=== PATIENT | female | born 1945 | race Caucasian/White ===

== ENCOUNTER 2020-11-19 17:42 | Inpatient (IN) | payer MEDICARE, MEDICAID ==
[~2020-11-19] VITALS: Ht 162.6 cm; Wt 80.7 kg
[2020-11-19] MEDS ORDERED: DEXTROSE 50%-WATER 25 GM/50 ML SYRINGE IVP PRN (19:45)
[2020-11-19 20:08] VITALS: BP 160/82
[2020-11-19 20:30] VITALS: BP 161/76
[2020-11-19] MEDS ORDERED: APIXABAN 5 MG TABLET PO SCH (21:00)
[2020-11-19] MEDS: METOPROLOL TARTRATE 25 MG TABLET PO SCH (21:22)
[2020-11-19] MEDS: ACETAMINOPHEN 325 MG TABLET PO PRN (21:22)
[2020-11-19] MEDS: ATORVASTATIN CALCIUM 40 MG TABLET PO SCH (21:22)
[2020-11-19] MEDS: DOCUSATE SODIUM 250 MG CAPSULE PO SCH (21:22)
[2020-11-19] MEDS: ETHYL ALCOHOL 62% ANTISEPTIC NASAL INHALANT 0.6 ML AMPUL NASAL SCH (21:22)
[2020-11-19] MEDS: GABAPENTIN 300 MG CAPSULE PO SCH (21:22)
[2020-11-19] MEDS: SENNA 187 MG TABLET PO SCH (21:22)
[2020-11-19] MEDS: BRIMONIDINE TARTRATE 0.1% 5 ML OPHTHALMIC SOLUTION OU SCH (21:24)
[2020-11-19] MEDS: INSULIN LISPRO 100 UNITS/ML SQ PRN (21:24)
[2020-11-19 22:22] VITALS: BP 121/54
[2020-11-19 22:22] LABS: GLUCOMETER DEV NAME(LOC) 2WR.1C; GLUCOSE,POINT OF CARE 170 MG/DL (70-110)
[2020-11-19] MEDS: 0.9% SODIUM CHLORIDE 10 ML SYRINGE IVP SCH (23:55)
[2020-11-20] VITALS: BP 123/60
[2020-11-20 06:18] LABS: GLUCOMETER DEV NAME(LOC) 2WR.2B; GLUCOSE,POINT OF CARE 144 MG/DL (70-110)
[2020-11-20 06:25] LABS: BASOPHILS % (AUTO) 0.3 % (0.0-2.0); EOSINOPHILS % (AUTO) 0.4 % (1.0-6.0); HEMATOCRIT 36.8 % (36-46); LYMPHOCYTES # (AUTO) 0.9 K/uL (1.0-4.8); MEAN CORPUSCULAR HEMOGLOBIN 28.2 pg (26.0-34.0); MEAN CORPUSCULAR HGB CONC 32.6 G/dL (31.0-37.0); MEAN CORPUSCULAR VOLUME 87 fL (80-100); MONOCYTES # (AUTO) 1.2 K/uL (0.1-1.0); MONOCYTES % (AUTO) 10.5 % (2.0-9.0); NEUTROPHILS # (AUTO) 9.4 K/uL (1.8-7.7); NEUTROPHILS % (AUTO) 80.8 % (40.0-70.0); PLATELET COUNT (AUTO) 259 K/uL (150-450); RED BLOOD CELL COUNT(AUTO) 4.25 MIL/uL (4.00-5.20); RED CELL DISTRIBUTION WIDTH 15.8 % (11.5-14.5)
[2020-11-20 06:43] LABS: ALANINE AMINOTRANSFERASE 48 U/L (12-78); ALBUMIN 2.1 g/dL (3.4-5.0); ALKALINE PHOSPHATASE 126 U/L (46-116); ANION GAP 8 mmol/L (8-16); ASPARTATE AMINOTRANSFERASE 41 U/L (15-37); BILIRUBIN,TOTAL 0.5 mg/dL (0.1-1.0); CALCIUM, TOTAL 8.4 mg/dL (8.8-10.5); CARBON DIOXIDE 28 mmol/L (22-29); CHLORIDE 102 mmol/L (98-107); CREATININE 0.71 mg/dL (0.60-1.30); GLUCOSE,RANDOM 144 mg/dL (70-110); POTASSIUM 3.7 mmol/L (3.5-5.1); SODIUM SERUM 138 mmol/L (136-145); TOTAL PROTEIN, SERUM 6.7 g/dL (6.4-8.2); UREA NITROGEN, BLOOD 13 mg/dL (7-18)
[2020-11-20 06:44] LABS: GLOMERULAR FILTR. RATE CALC > 60 mL/min (>60)
[2020-11-20 08:16] VITALS: BP 145/84
[2020-11-20] MEDS: ETHYL ALCOHOL 62% ANTISEPTIC NASAL INHALANT 0.6 ML AMPUL NASAL SCH ×2 (08:19→21:50)
[2020-11-20] MEDS: DOCUSATE SODIUM 250 MG CAPSULE PO SCH ×2 (08:20→21:50)
[2020-11-20] MEDS: CHOLECALCIFEROL (VIT D3) 1,000 UNITS [25 MCG] TABLET PO SCH (08:20)
[2020-11-20] MEDS: PIOGLITAZONE HCL 15 MG TABLET PO SCH (08:20)
[2020-11-20] MEDS: METOPROLOL TARTRATE 25 MG TABLET PO SCH ×2 (08:20→21:50)
[2020-11-20] MEDS: AmLODIPine BESYLATE 5 MG TABLET PO SCH (08:20)
[2020-11-20] MEDS: LISINOPRIL 20 MG TABLET PO SCH (08:20)
[2020-11-20] MEDS: GABAPENTIN 300 MG CAPSULE PO SCH ×2 (08:20→21:50)
[2020-11-20] MEDS: 0.9% SODIUM CHLORIDE 10 ML SYRINGE IVP SCH ×3 (08:21→23:43)
[2020-11-20] MEDS: MetFORMIN HCL 500 MG TABLET PO SCH ×2 (08:25→17:32)
[2020-11-20] MEDS ORDERED: ASPIRIN 81 MG CHEWABLE TABLET PO SCH (09:00)
[2020-11-20] MEDS: INSULIN LISPRO 100 UNITS/ML SQ PRN ×3 (09:05→20:40)
[2020-11-20] MEDS: BRIMONIDINE TARTRATE 0.1% 5 ML OPHTHALMIC SOLUTION OU SCH ×2 (09:15→21:56)
[2020-11-20] MEDS: KETOCONAZOLE 2% 15 GM CREAM TP SCH (11:16)
[2020-11-20] MEDS: ACETAMINOPHEN 325 MG TABLET PO PRN (12:32)
[2020-11-20 16:00] LABS: GLUCOMETER DEV NAME(LOC) 2WR.2B; GLUCOSE,POINT OF CARE 126 MG/DL (70-110)
[2020-11-20 16:45] VITALS: BP 112/60
[2020-11-20] MEDS ORDERED: ERTAPENEM SODIUM 1 GM/VIAL IM SCH (17:00)
[2020-11-20] MEDS ORDERED: LIDOCAINE/PF 1% 5 ML VIAL IM SCH (17:00)
[2020-11-20] MEDS: ERTAPENEM SODIUM 1 GM in SODIUM CHLORIDE 0.9% 50 ML IV SCH (17:40)
[2020-11-20] MEDS ORDERED: SODIUM CHLORIDE 0.9% 250 ML IV ONE (17:44)
[2020-11-20 18:59] LABS: GLUCOMETER DEV NAME(LOC) 2WR.1C; GLUCOSE,POINT OF CARE 151 MG/DL (70-110)
[2020-11-20] MEDS: SENNA 187 MG TABLET PO SCH (21:50)
[2020-11-20] MEDS: ATORVASTATIN CALCIUM 40 MG TABLET PO SCH (21:50)
[2020-11-20 21:54] VITALS: BP 115/64
[2020-11-21 02:00] VITALS: BP 109/51
[2020-11-21 05:14] LABS: GLUCOMETER DEV NAME(LOC) 2WR.1C; GLUCOSE,POINT OF CARE 157 MG/DL (70-110)
[2020-11-21 05:53] LABS: GLUCOMETER DEV NAME(LOC) 2WR.1C; GLUCOSE,POINT OF CARE 131 MG/DL (70-110)
[2020-11-21 08:10] VITALS: BP 144/60
[2020-11-21] MEDS: DOCUSATE SODIUM 250 MG CAPSULE PO SCH ×2 (08:23→20:57)
[2020-11-21] MEDS: CHOLECALCIFEROL (VIT D3) 1,000 UNITS [25 MCG] TABLET PO SCH (08:23)
[2020-11-21] MEDS: MetFORMIN HCL 500 MG TABLET PO SCH ×2 (08:23→17:05)
[2020-11-21] MEDS: ETHYL ALCOHOL 62% ANTISEPTIC NASAL INHALANT 0.6 ML AMPUL NASAL SCH ×2 (08:23→20:56)
[2020-11-21] MEDS: 0.9% SODIUM CHLORIDE 10 ML SYRINGE IVP SCH ×2 (08:23→17:05)
[2020-11-21] MEDS: METOPROLOL TARTRATE 25 MG TABLET PO SCH ×2 (08:24→20:57)
[2020-11-21] MEDS: GABAPENTIN 300 MG CAPSULE PO SCH ×2 (08:24→20:57)
[2020-11-21] MEDS: LISINOPRIL 20 MG TABLET PO SCH (08:24)
[2020-11-21] MEDS: PIOGLITAZONE HCL 15 MG TABLET PO SCH (08:24)
[2020-11-21] MEDS: AmLODIPine BESYLATE 5 MG TABLET PO SCH (08:25)
[2020-11-21] MEDS: BRIMONIDINE TARTRATE 0.1% 5 ML OPHTHALMIC SOLUTION OU SCH ×2 (09:19→20:57)
[2020-11-21] MEDS: KETOCONAZOLE 2% 15 GM CREAM TP SCH (09:20)
[2020-11-21] MEDS: ACETAMINOPHEN 325 MG TABLET PO PRN (10:09)
[2020-11-21 12:16] LABS: GLUCOMETER DEV NAME(LOC) 2WR.2B; GLUCOSE,POINT OF CARE 153 MG/DL (70-110)
[2020-11-21] MEDS: INSULIN LISPRO 100 UNITS/ML SQ PRN ×2 (12:34→21:22)
[2020-11-21] MEDS: ERTAPENEM SODIUM 1 GM in SODIUM CHLORIDE 0.9% 50 ML IV SCH (17:05)
[2020-11-21 18:04] LABS: GLUCOMETER DEV NAME(LOC) 2WR.1C; GLUCOSE,POINT OF CARE 107 MG/DL (70-110)
[2020-11-21] MEDS: ATORVASTATIN CALCIUM 40 MG TABLET PO SCH (20:57)
[2020-11-21] MEDS: SENNA 187 MG TABLET PO SCH (20:57)
[2020-11-21 21:25] LABS: GLUCOMETER DEV NAME(LOC) 2WR.1C; GLUCOSE,POINT OF CARE 146 MG/DL (70-110)
[2020-11-21 21:55] VITALS: BP 131/66
[2020-11-22] MEDS: 0.9% SODIUM CHLORIDE 10 ML SYRINGE IVP SCH ×3 (00:34→16:26)
[2020-11-22 01:33] VITALS: BP 104/52
[2020-11-22 06:15] LABS: GLUCOMETER DEV NAME(LOC) 2WR.2B; GLUCOSE,POINT OF CARE 114 MG/DL (70-110)
[2020-11-22] MEDS: BRIMONIDINE TARTRATE 0.1% 5 ML OPHTHALMIC SOLUTION OU SCH ×2 (08:27→21:04)
[2020-11-22] MEDS: KETOCONAZOLE 2% 15 GM CREAM TP SCH (08:27)
[2020-11-22] MEDS: LISINOPRIL 20 MG TABLET PO SCH (08:29)
[2020-11-22] MEDS: MetFORMIN HCL 500 MG TABLET PO SCH ×2 (08:29→17:39)
[2020-11-22] MEDS: DOCUSATE SODIUM 250 MG CAPSULE PO SCH ×2 (08:29→20:19)
[2020-11-22] MEDS: ETHYL ALCOHOL 62% ANTISEPTIC NASAL INHALANT 0.6 ML AMPUL NASAL SCH ×2 (08:29→20:19)
[2020-11-22] MEDS: PIOGLITAZONE HCL 15 MG TABLET PO SCH (08:29)
[2020-11-22] MEDS: AmLODIPine BESYLATE 5 MG TABLET PO SCH (08:29)
[2020-11-22] MEDS: GABAPENTIN 300 MG CAPSULE PO SCH ×2 (08:30→20:19)
[2020-11-22] MEDS: METOPROLOL TARTRATE 25 MG TABLET PO SCH ×2 (08:30→20:19)
[2020-11-22] MEDS: CHOLECALCIFEROL (VIT D3) 1,000 UNITS [25 MCG] TABLET PO SCH (08:30)
[2020-11-22 08:58] VITALS: BP 142/72
[2020-11-22] MEDS: ACETAMINOPHEN 325 MG TABLET PO PRN (08:58)
[2020-11-22 12:30] LABS: GLUCOMETER DEV NAME(LOC) 2WR.2B; GLUCOSE,POINT OF CARE 141 MG/DL (70-110)
[2020-11-22] MEDS: INSULIN LISPRO 100 UNITS/ML SQ PRN (12:42)
[2020-11-22] MEDS: ERTAPENEM SODIUM 1 GM in SODIUM CHLORIDE 0.9% 50 ML IV SCH ×2 (16:26→16:53)
[2020-11-22] MEDS ORDERED: SODIUM CHLORIDE 0.9% 500 ML IV ONE (17:08)
[2020-11-22 18:01] VITALS: BP 102/61
[2020-11-22 19:27] LABS: GLUCOMETER DEV NAME(LOC) 2WR.2B; GLUCOSE,POINT OF CARE 114 MG/DL (70-110)
[2020-11-22] MEDS: ATORVASTATIN CALCIUM 40 MG TABLET PO SCH (20:19)
[2020-11-22] MEDS: SENNA 187 MG TABLET PO SCH (20:20)
[2020-11-23] VITALS: BP 112/50
[2020-11-23] MEDS: 0.9% SODIUM CHLORIDE 10 ML SYRINGE IVP SCH ×3 (00:01→17:17)
[2020-11-23 05:47] LABS: GLUCOMETER DEV NAME(LOC) 2WR.1C; GLUCOSE,POINT OF CARE 104 MG/DL (70-110)
[2020-11-23 06:00] LABS: GLUCOMETER DEV NAME(LOC) 2WR.1C; GLUCOSE,POINT OF CARE 98 MG/DL (70-110)
[2020-11-23] MEDS: MetFORMIN HCL 500 MG TABLET PO SCH ×2 (07:51→17:17)
[2020-11-23] MEDS: LISINOPRIL 20 MG TABLET PO SCH (08:38)
[2020-11-23] MEDS: AmLODIPine BESYLATE 5 MG TABLET PO SCH (08:38)
[2020-11-23] MEDS: GABAPENTIN 300 MG CAPSULE PO SCH ×2 (08:38→21:25)
[2020-11-23] MEDS: ETHYL ALCOHOL 62% ANTISEPTIC NASAL INHALANT 0.6 ML AMPUL NASAL SCH ×2 (08:38→21:14)
[2020-11-23] MEDS: DOCUSATE SODIUM 250 MG CAPSULE PO SCH ×2 (08:38→21:25)
[2020-11-23] MEDS: CHOLECALCIFEROL (VIT D3) 1,000 UNITS [25 MCG] TABLET PO SCH (08:38)
[2020-11-23] MEDS: PIOGLITAZONE HCL 15 MG TABLET PO SCH (08:38)
[2020-11-23 08:40] VITALS: BP 108/52
[2020-11-23] MEDS: ACETAMINOPHEN 325 MG TABLET PO PRN (10:01)
[2020-11-23] MEDS: METOPROLOL TARTRATE 25 MG TABLET PO SCH ×2 (10:01→21:26)
[2020-11-23] MEDS: BRIMONIDINE TARTRATE 0.1% 5 ML OPHTHALMIC SOLUTION OU SCH ×2 (10:07→21:26)
[2020-11-23] MEDS: KETOCONAZOLE 2% 15 GM CREAM TP SCH (10:08)
[2020-11-23 13:14] LABS: GLUCOMETER DEV NAME(LOC) 2WR.2B; GLUCOSE,POINT OF CARE 117 MG/DL (70-110)
[2020-11-23] MEDS: ERTAPENEM SODIUM 1 GM in SODIUM CHLORIDE 0.9% 50 ML IV SCH (17:16)
[2020-11-23 18:05] VITALS: BP 109/59
[2020-11-23 19:34] LABS: GLUCOMETER DEV NAME(LOC) 2WR.1C; GLUCOSE,POINT OF CARE 101 MG/DL (70-110)
[2020-11-23] MEDS: TAMSULOSIN HCL 0.4 MG CAPSULE PO SCH (21:25)
[2020-11-23] MEDS: SENNA 187 MG TABLET PO SCH (21:25)
[2020-11-23] MEDS: ATORVASTATIN CALCIUM 40 MG TABLET PO SCH (21:25)
[2020-11-23 21:52] LABS: GLUCOMETER DEV NAME(LOC) 2WR.1C; GLUCOSE,POINT OF CARE 111 MG/DL (70-110)
[2020-11-24] VITALS: BP 124/68
[2020-11-24] MEDS: 0.9% SODIUM CHLORIDE 10 ML SYRINGE IVP SCH ×3 (00:07→16:33)
[2020-11-24 06:47] LABS: GLUCOMETER DEV NAME(LOC) 2WR.1C; GLUCOSE,POINT OF CARE 125 MG/DL (70-110)
[2020-11-24 08:00] VITALS: BP 114/66
[2020-11-24] MEDS: DOCUSATE SODIUM 250 MG CAPSULE PO SCH ×2 (08:44→21:00)
[2020-11-24] MEDS: PIOGLITAZONE HCL 15 MG TABLET PO SCH (08:44)
[2020-11-24] MEDS: MetFORMIN HCL 500 MG TABLET PO SCH ×2 (08:44→17:18)
[2020-11-24] MEDS: GABAPENTIN 300 MG CAPSULE PO SCH ×2 (08:45→21:01)
[2020-11-24] MEDS: LISINOPRIL 20 MG TABLET PO SCH (08:45)
[2020-11-24] MEDS: METOPROLOL TARTRATE 25 MG TABLET PO SCH ×2 (08:45→21:00)
[2020-11-24] MEDS: CHOLECALCIFEROL (VIT D3) 1,000 UNITS [25 MCG] TABLET PO SCH (08:45)
[2020-11-24] MEDS: AmLODIPine BESYLATE 5 MG TABLET PO SCH (08:45)
[2020-11-24] MEDS: ETHYL ALCOHOL 62% ANTISEPTIC NASAL INHALANT 0.6 ML AMPUL NASAL SCH ×2 (09:01→21:00)
[2020-11-24] MEDS: BRIMONIDINE TARTRATE 0.1% 5 ML OPHTHALMIC SOLUTION OU SCH ×2 (09:03→21:01)
[2020-11-24] MEDS: KETOCONAZOLE 2% 15 GM CREAM TP SCH (09:04)
[2020-11-24 13:01] LABS: GLUCOMETER DEV NAME(LOC) 2WR.1C; GLUCOSE,POINT OF CARE 121 MG/DL (70-110)
[2020-11-24] MEDS ORDERED: MAGNESIUM HYDROXIDE SUSPENSION 30 ML UDCUP PO PRN (13:30)
[2020-11-24] MEDS ORDERED: POLYETHYLENE GLYCOL 3350 17 GM PACKET PO PRN (13:30)
[2020-11-24 16:20] VITALS: BP 116/61
[2020-11-24] MEDS: ERTAPENEM SODIUM 1 GM in SODIUM CHLORIDE 0.9% 50 ML IV SCH (16:31)
[2020-11-24] MEDS ORDERED: SODIUM CHLORIDE 0.9% 250 ML IV ONE (16:35)
[2020-11-24 18:15] LABS: GLUCOMETER DEV NAME(LOC) 2WR.1C; GLUCOSE,POINT OF CARE 115 MG/DL (70-110)
[2020-11-24] MEDS: SENNA 187 MG TABLET PO SCH (21:00)
[2020-11-24] MEDS: TAMSULOSIN HCL 0.4 MG CAPSULE PO SCH (21:00)
[2020-11-24] MEDS: ATORVASTATIN CALCIUM 40 MG TABLET PO SCH (21:01)
[2020-11-24 21:05] VITALS: BP 114/59
[2020-11-24 21:36] LABS: GLUCOMETER DEV NAME(LOC) 2WR.1C; GLUCOSE,POINT OF CARE 113 MG/DL (70-110)
[2020-11-25] VITALS: BP 114/56
[2020-11-25] MEDS: 0.9% SODIUM CHLORIDE 10 ML SYRINGE IVP SCH ×4 (00:20→23:30)
[2020-11-25 05:44] LABS: GLUCOMETER DEV NAME(LOC) 2WR.2B; GLUCOSE,POINT OF CARE 107 MG/DL (70-110)
[2020-11-25] MEDS: ETHYL ALCOHOL 62% ANTISEPTIC NASAL INHALANT 0.6 ML AMPUL NASAL SCH ×2 (08:22→21:01)
[2020-11-25] MEDS: DOCUSATE SODIUM 250 MG CAPSULE PO SCH ×2 (08:23→21:01)
[2020-11-25] MEDS: BRIMONIDINE TARTRATE 0.1% 5 ML OPHTHALMIC SOLUTION OU SCH ×2 (08:23→21:03)
[2020-11-25] MEDS: PIOGLITAZONE HCL 15 MG TABLET PO SCH (08:23)
[2020-11-25] MEDS: AmLODIPine BESYLATE 5 MG TABLET PO SCH (08:24)
[2020-11-25] MEDS: METOPROLOL TARTRATE 25 MG TABLET PO SCH ×2 (08:24→21:01)
[2020-11-25] MEDS: GABAPENTIN 300 MG CAPSULE PO SCH ×2 (08:24→21:01)
[2020-11-25] MEDS: CHOLECALCIFEROL (VIT D3) 1,000 UNITS [25 MCG] TABLET PO SCH (08:24)
[2020-11-25] MEDS: LISINOPRIL 20 MG TABLET PO SCH (08:24)
[2020-11-25] MEDS: KETOCONAZOLE 2% 15 GM CREAM TP SCH (08:25)
[2020-11-25] MEDS: MetFORMIN HCL 500 MG TABLET PO SCH ×2 (08:26→17:41)
[2020-11-25 10:00] VITALS: BP 131/67
[2020-11-25 12:03] LABS: GLUCOMETER DEV NAME(LOC) 2WR.1C; GLUCOSE,POINT OF CARE 158 MG/DL (70-110)
[2020-11-25] MEDS: INSULIN LISPRO 100 UNITS/ML SQ PRN (12:17)
[2020-11-25 16:02] VITALS: BP 109/54
[2020-11-25] MEDS ORDERED: SODIUM CHLORIDE 0.9% 0 ML IV ONE (16:47)
[2020-11-25] MEDS ORDERED: SODIUM CHLORIDE 0.9% 100 ML ONE (16:49)
[2020-11-25] MEDS: ERTAPENEM SODIUM 1 GM in SODIUM CHLORIDE 0.9% 50 ML IV SCH (16:52)
[2020-11-25 17:34] LABS: GLUCOMETER DEV NAME(LOC) 2WR.2B; GLUCOSE,POINT OF CARE 93 MG/DL (70-110)
[2020-11-25 21:00] VITALS: BP 123/62
[2020-11-25] MEDS: TAMSULOSIN HCL 0.4 MG CAPSULE PO SCH (21:01)
[2020-11-25] MEDS: ATORVASTATIN CALCIUM 40 MG TABLET PO SCH (21:01)
[2020-11-25] MEDS: SENNA 187 MG TABLET PO SCH (21:01)
[2020-11-25 21:35] LABS: GLUCOMETER DEV NAME(LOC) 2WR.2B; GLUCOSE,POINT OF CARE 104 MG/DL (70-110)
[2020-11-26 00:22] VITALS: BP 124/66
[2020-11-26 05:59] LABS: GLUCOMETER DEV NAME(LOC) 2WR.1C; GLUCOSE,POINT OF CARE 101 MG/DL (70-110)
[2020-11-26] MEDS: CHOLECALCIFEROL (VIT D3) 1,000 UNITS [25 MCG] TABLET PO SCH (08:14)
[2020-11-26] MEDS: GABAPENTIN 300 MG CAPSULE PO SCH ×2 (08:14→21:12)
[2020-11-26] MEDS: METOPROLOL TARTRATE 25 MG TABLET PO SCH ×2 (08:14→21:12)
[2020-11-26] MEDS: DOCUSATE SODIUM 250 MG CAPSULE PO SCH ×2 (08:14→21:12)
[2020-11-26] MEDS: MetFORMIN HCL 500 MG TABLET PO SCH ×2 (08:14→17:03)
[2020-11-26] MEDS: AmLODIPine BESYLATE 5 MG TABLET PO SCH (08:14)
[2020-11-26] MEDS: PIOGLITAZONE HCL 15 MG TABLET PO SCH (08:14)
[2020-11-26] MEDS: LISINOPRIL 20 MG TABLET PO SCH (08:14)
[2020-11-26] MEDS: KETOCONAZOLE 2% 15 GM CREAM TP SCH (08:15)
[2020-11-26] MEDS: 0.9% SODIUM CHLORIDE 10 ML SYRINGE IVP SCH ×2 (08:15→17:01)
[2020-11-26] MEDS: BRIMONIDINE TARTRATE 0.1% 5 ML OPHTHALMIC SOLUTION OU SCH ×2 (08:15→21:14)
[2020-11-26] MEDS: ETHYL ALCOHOL 62% ANTISEPTIC NASAL INHALANT 0.6 ML AMPUL NASAL SCH ×2 (08:24→21:15)
[2020-11-26 08:51] VITALS: BP 139/60
[2020-11-26 12:18] LABS: GLUCOMETER DEV NAME(LOC) 2WR.2B; GLUCOSE,POINT OF CARE 111 MG/DL (70-110)
[2020-11-26] MEDS: MULTIVITAMINS WITH MINERALS, THERAPEUTIC TABLET PO SCH (12:43)
[2020-11-26] MEDS: ACETAMINOPHEN 325 MG TABLET PO PRN (13:45)
[2020-11-26 16:00] VITALS: BP 103/53
[2020-11-26] MEDS: ERTAPENEM SODIUM 1 GM in SODIUM CHLORIDE 0.9% 50 ML IV SCH (17:00)
[2020-11-26 19:08] LABS: GLUCOMETER DEV NAME(LOC) 2WR.2B; GLUCOSE,POINT OF CARE 115 MG/DL (70-110)
[2020-11-26 21:00] VITALS: BP 112/63
[2020-11-26] MEDS: TAMSULOSIN HCL 0.4 MG CAPSULE PO SCH (21:12)
[2020-11-26] MEDS: ATORVASTATIN CALCIUM 40 MG TABLET PO SCH (21:12)
[2020-11-26] MEDS: SENNA 187 MG TABLET PO SCH (21:12)
[2020-11-26 21:49] LABS: GLUCOMETER DEV NAME(LOC) 2WR.2B; GLUCOSE,POINT OF CARE 93 MG/DL (70-110)
[2020-11-27] MEDS: 0.9% SODIUM CHLORIDE 10 ML SYRINGE IVP SCH ×4 (00:15→23:16)
[2020-11-27 00:30] VITALS: BP 83/49
[2020-11-27 01:45] VITALS: BP 106/60
[2020-11-27 05:38] LABS: GLUCOMETER DEV NAME(LOC) 2WR.1C; GLUCOSE,POINT OF CARE 105 MG/DL (70-110)
[2020-11-27] MEDS: ETHYL ALCOHOL 62% ANTISEPTIC NASAL INHALANT 0.6 ML AMPUL NASAL SCH ×2 (08:25→20:47)
[2020-11-27 08:26] VITALS: BP 107/52
[2020-11-27] MEDS: ACETAMINOPHEN 325 MG TABLET PO PRN (08:26)
[2020-11-27] MEDS: DOCUSATE SODIUM 250 MG CAPSULE PO SCH ×2 (08:26→21:00)
[2020-11-27] MEDS: MULTIVITAMINS WITH MINERALS, THERAPEUTIC TABLET PO SCH (08:26)
[2020-11-27] MEDS: MetFORMIN HCL 500 MG TABLET PO SCH ×2 (08:26→17:12)
[2020-11-27] MEDS: LISINOPRIL 20 MG TABLET PO SCH (08:26)
[2020-11-27] MEDS: GABAPENTIN 300 MG CAPSULE PO SCH ×2 (08:26→20:47)
[2020-11-27] MEDS: KETOCONAZOLE 2% 15 GM CREAM TP SCH (08:27)
[2020-11-27] MEDS: CHOLECALCIFEROL (VIT D3) 1,000 UNITS [25 MCG] TABLET PO SCH (08:27)
[2020-11-27] MEDS: BRIMONIDINE TARTRATE 0.1% 5 ML OPHTHALMIC SOLUTION OU SCH ×2 (08:27→20:48)
[2020-11-27] MEDS: PIOGLITAZONE HCL 15 MG TABLET PO SCH (08:28)
[2020-11-27] MEDS: AmLODIPine BESYLATE 5 MG TABLET PO SCH (08:33)
[2020-11-27] MEDS: METOPROLOL TARTRATE 25 MG TABLET PO SCH ×2 (09:00→20:47)
[2020-11-27 16:20] VITALS: BP 140/66
[2020-11-27] MEDS: ERTAPENEM SODIUM 1 GM in SODIUM CHLORIDE 0.9% 50 ML IV SCH (17:03)
[2020-11-27 18:45] LABS: GLUCOMETER DEV NAME(LOC) 2WR.1C; GLUCOSE,POINT OF CARE 102 MG/DL (70-110)
[2020-11-27] MEDS: TAMSULOSIN HCL 0.4 MG CAPSULE PO SCH (20:47)
[2020-11-27] MEDS: ATORVASTATIN CALCIUM 40 MG TABLET PO SCH (20:47)
[2020-11-27] MEDS: SENNA 187 MG TABLET PO SCH (21:00)
[2020-11-28] VITALS (7 sets, daily range): BP systolic 83–134; BP diastolic 46–89
[2020-11-28 05:54] LABS: GLUCOMETER DEV NAME(LOC) 2WR.2B; GLUCOSE,POINT OF CARE 102 MG/DL (70-110)
[2020-11-28] MEDS: BRIMONIDINE TARTRATE 0.1% 5 ML OPHTHALMIC SOLUTION OU SCH ×2 (08:37→20:38)
[2020-11-28] MEDS: KETOCONAZOLE 2% 15 GM CREAM TP SCH (08:37)
[2020-11-28] MEDS: MetFORMIN HCL 500 MG TABLET PO SCH ×2 (08:38→17:03)
[2020-11-28] MEDS: DOCUSATE SODIUM 250 MG CAPSULE PO SCH ×2 (08:38→20:19)
[2020-11-28] MEDS: ETHYL ALCOHOL 62% ANTISEPTIC NASAL INHALANT 0.6 ML AMPUL NASAL SCH ×2 (08:38→20:19)
[2020-11-28] MEDS: LISINOPRIL 20 MG TABLET PO SCH (08:38)
[2020-11-28] MEDS: MULTIVITAMINS WITH MINERALS, THERAPEUTIC TABLET PO SCH (08:38)
[2020-11-28] MEDS: GABAPENTIN 300 MG CAPSULE PO SCH ×2 (08:38→20:20)
[2020-11-28] MEDS: PIOGLITAZONE HCL 15 MG TABLET PO SCH (08:38)
[2020-11-28] MEDS: CHOLECALCIFEROL (VIT D3) 1,000 UNITS [25 MCG] TABLET PO SCH (08:38)
[2020-11-28] MEDS: 0.9% SODIUM CHLORIDE 10 ML SYRINGE IVP SCH ×3 (08:38→23:23)
[2020-11-28] MEDS: AmLODIPine BESYLATE 5 MG TABLET PO SCH (08:38)
[2020-11-28] MEDS: METOPROLOL TARTRATE 25 MG TABLET PO SCH ×2 (08:38→20:19)
[2020-11-28] MEDS: ACETAMINOPHEN 325 MG TABLET PO PRN (08:59)
[2020-11-28 13:35] LABS: BASOPHILS % (AUTO) 0.9 % (0.0-2.0); EOSINOPHILS % (AUTO) 1.8 % (1.0-6.0); HEMATOCRIT 38.7 % (36-46); HEMOGLOBIN 12.2 g/dL (12.0-16.0); LYMPHOCYTES # (AUTO) 1.2 K/uL (1.0-4.8); LYMPHOCYTES % (AUTO) 14.7 % (22.0-44.0); MEAN CORPUSCULAR HEMOGLOBIN 27.6 pg (26.0-34.0); MEAN CORPUSCULAR HGB CONC 31.5 G/dL (31.0-37.0); MEAN CORPUSCULAR VOLUME 88 fL (80-100); MONOCYTES # (AUTO) 0.7 K/uL (0.1-1.0); MONOCYTES % (AUTO) 9.3 % (2.0-9.0); NEUTROPHILS # (AUTO) 5.9 K/uL (1.8-7.7); NEUTROPHILS % (AUTO) 73.3 % (40.0-70.0); PLATELET COUNT (AUTO) 335 K/uL (150-450); RED BLOOD CELL COUNT(AUTO) 4.41 MIL/uL (4.00-5.20); RED CELL DISTRIBUTION WIDTH 15.7 % (11.5-14.5)
[2020-11-28 13:55] LABS: ALBUMIN 2.5 g/dL (3.4-5.0); BILIRUBIN,TOTAL 0.3 mg/dL (0.1-1.0); CALCIUM, TOTAL 9.5 mg/dL (8.8-10.5); CREATININE 1.04 mg/dL (0.60-1.30); POTASSIUM 5.8 mmol/L (3.5-5.1); TOTAL PROTEIN, SERUM 7.7 g/dL (6.4-8.2)
[2020-11-28] MEDS ORDERED: SODIUM POLYSTYRENE SULFONATE 15 GM/60 ML SUSPENSION BOTTLE PO ONE ×2 (18:30→19:00)
[2020-11-28 20:18] LABS: GLUCOMETER DEV NAME(LOC) 2WR.1C; GLUCOSE,POINT OF CARE 109 MG/DL (70-110)
[2020-11-28] MEDS: TAMSULOSIN HCL 0.4 MG CAPSULE PO SCH (20:19)
[2020-11-28] MEDS: ATORVASTATIN CALCIUM 40 MG TABLET PO SCH (20:19)
[2020-11-28] MEDS: SENNA 187 MG TABLET PO SCH (20:19)
[2020-11-29] VITALS: BP 108/53
[2020-11-29 05:38] LABS: GLUCOMETER DEV NAME(LOC) 2WR.1C; GLUCOSE,POINT OF CARE 116 MG/DL (70-110)
[2020-11-29 06:49] LABS: APPEARANCE,URINE CLEAR (CLEAR); BILIRUBIN,URINE NEGATIVE (NEGATIVE); GLUCOSE, URINE (UA) NEGATIVE (NEGATIVE); KETONES,URINE NEGATIVE (NEGATIVE); LEUKOCYTE ESTERASE ,URINE TRACE (NEGATIVE); NITRATE,URINE NEGATIVE (NEGATIVE); OCCULT BLOOD,URINE NEGATIVE (NEGATIVE); PROTEIN,URINE NEGATIVE (NEGATIVE); UROBILINOGEN,URINE 0.2 mg/dL (<=1.0)
[2020-11-29 07:47] LABS: BACTERIA,URINE None Seen /HPF (None Seen); RBC,URINE None Seen /HPF (0-2); SQUAMOUS EPITHELIAL CELL,UR Few /LPF (None Seen); WBC,URINE 0-2 /HPF (0-5)
[2020-11-29 08:01] VITALS: BP 133/72
[2020-11-29 08:37] LABS: ANION GAP 7 mmol/L (8-16); CALCIUM, TOTAL 8.9 mg/dL (8.8-10.5); CARBON DIOXIDE 27 mmol/L (22-29); CHLORIDE 106 mmol/L (98-107); CREATININE 0.66 mg/dL (0.60-1.30); GLUCOSE,RANDOM 121 mg/dL (70-110); POTASSIUM 4.4 mmol/L (3.5-5.1); SODIUM SERUM 140 mmol/L (136-145); UREA NITROGEN, BLOOD 32 mg/dL (7-18)
[2020-11-29 08:38] LABS: GLOMERULAR FILTR. RATE CALC > 60 mL/min (>60)
[2020-11-29] MEDS: MetFORMIN HCL 500 MG TABLET PO SCH ×2 (08:44→17:48)
[2020-11-29] MEDS: PIOGLITAZONE HCL 15 MG TABLET PO SCH (08:46)
[2020-11-29] MEDS: METOPROLOL TARTRATE 25 MG TABLET PO SCH ×2 (08:46→21:13)
[2020-11-29] MEDS: LISINOPRIL 10 MG TABLET PO SCH (08:46)
[2020-11-29] MEDS: GABAPENTIN 300 MG CAPSULE PO SCH ×2 (08:46→21:13)
[2020-11-29] MEDS: APIXABAN 2.5 MG TABLET PO SCH ×2 (08:46→21:13)
[2020-11-29] MEDS: MULTIVITAMINS WITH MINERALS, THERAPEUTIC TABLET PO SCH (08:46)
[2020-11-29] MEDS: ACETAMINOPHEN 325 MG TABLET PO PRN (08:46)
[2020-11-29] MEDS: CHOLECALCIFEROL (VIT D3) 1,000 UNITS [25 MCG] TABLET PO SCH (08:46)
[2020-11-29] MEDS: DOCUSATE SODIUM 250 MG CAPSULE PO SCH ×2 (08:47→21:00)
[2020-11-29] MEDS: ETHYL ALCOHOL 62% ANTISEPTIC NASAL INHALANT 0.6 ML AMPUL NASAL SCH ×2 (08:47→21:13)
[2020-11-29] MEDS: BRIMONIDINE TARTRATE 0.1% 5 ML OPHTHALMIC SOLUTION OU SCH ×2 (08:47→21:14)
[2020-11-29] MEDS: KETOCONAZOLE 2% 15 GM CREAM TP SCH (08:47)
[2020-11-29] MEDS: 0.9% SODIUM CHLORIDE 10 ML SYRINGE IVP SCH ×2 (08:48→16:44)
[2020-11-29 16:02] VITALS: BP 95/55
[2020-11-29] MEDS: DICLOFENAC SODIUM 1% 100 GM GEL [4GM] TP SCH ×2 (16:40→21:20)
[2020-11-29 17:50] LABS: GLUCOMETER DEV NAME(LOC) 2WR.2B; GLUCOSE,POINT OF CARE 90 MG/DL (70-110)
[2020-11-29] MEDS: SENNA 187 MG TABLET PO SCH (21:00)
[2020-11-29] MEDS: ATORVASTATIN CALCIUM 40 MG TABLET PO SCH (21:13)
[2020-11-29] MEDS: TAMSULOSIN HCL 0.4 MG CAPSULE PO SCH (21:13)
[2020-11-29 21:36] VITALS: BP 115/62
[2020-11-30] VITALS: BP 85/36
[2020-11-30] MEDS: 0.9% SODIUM CHLORIDE 10 ML SYRINGE IVP SCH ×4 (01:23→23:28)
[2020-11-30 05:43] LABS: GLUCOMETER DEV NAME(LOC) 2WR.1C; GLUCOSE,POINT OF CARE 102 MG/DL (70-110)
[2020-11-30] MEDS: METOPROLOL TARTRATE 25 MG TABLET PO SCH ×2 (09:00→20:05)
[2020-11-30] MEDS: LISINOPRIL 10 MG TABLET PO SCH (09:00)
[2020-11-30 09:04] VITALS: BP 127/72
[2020-11-30 10:00] VITALS: BP 105/53
[2020-11-30] MEDS: DICLOFENAC SODIUM 1% 100 GM GEL [4GM] TP SCH ×3 (10:07→20:07)
[2020-11-30] MEDS: MetFORMIN HCL 500 MG TABLET PO SCH ×2 (10:08→17:44)
[2020-11-30] MEDS: ETHYL ALCOHOL 62% ANTISEPTIC NASAL INHALANT 0.6 ML AMPUL NASAL SCH ×2 (10:08→20:04)
[2020-11-30] MEDS: CHOLECALCIFEROL (VIT D3) 1,000 UNITS [25 MCG] TABLET PO SCH (10:09)
[2020-11-30] MEDS: MULTIVITAMINS WITH MINERALS, THERAPEUTIC TABLET PO SCH (10:09)
[2020-11-30] MEDS: DOCUSATE SODIUM 250 MG CAPSULE PO SCH ×2 (10:09→20:06)
[2020-11-30] MEDS: APIXABAN 2.5 MG TABLET PO SCH ×2 (10:09→20:05)
[2020-11-30] MEDS: GABAPENTIN 300 MG CAPSULE PO SCH ×2 (10:09→20:06)
[2020-11-30] MEDS: PIOGLITAZONE HCL 15 MG TABLET PO SCH (10:09)
[2020-11-30] MEDS: BRIMONIDINE TARTRATE 0.1% 5 ML OPHTHALMIC SOLUTION OU SCH ×2 (10:10→20:04)
[2020-11-30] MEDS: KETOCONAZOLE 2% 15 GM CREAM TP SCH (10:10)
[2020-11-30 12:32] VITALS: BP 106/57
[2020-11-30 16:47] VITALS: BP 128/58
[2020-11-30 20:00] VITALS: BP 130/61
[2020-11-30] MEDS: SENNA 187 MG TABLET PO SCH (20:06)
[2020-11-30] MEDS: TAMSULOSIN HCL 0.4 MG CAPSULE PO SCH (20:07)
[2020-11-30] MEDS: ATORVASTATIN CALCIUM 40 MG TABLET PO SCH (20:07)
[2020-12-01 05:00] VITALS: BP 97/55
[2020-12-01 05:36] LABS: GLUCOMETER DEV NAME(LOC) 2WR.1C; GLUCOSE,POINT OF CARE 81 MG/DL (70-110)
[2020-12-01 05:43] LABS: GLUCOMETER DEV NAME(LOC) 2WR.1C; GLUCOSE,POINT OF CARE 113 MG/DL (70-110)
[2020-12-01 08:10] VITALS: BP 115/46
[2020-12-01] MEDS: MetFORMIN HCL 500 MG TABLET PO SCH ×2 (08:20→17:07)
[2020-12-01] MEDS: 0.9% SODIUM CHLORIDE 10 ML SYRINGE IVP SCH ×3 (08:21→23:23)
[2020-12-01] MEDS: ETHYL ALCOHOL 62% ANTISEPTIC NASAL INHALANT 0.6 ML AMPUL NASAL SCH ×2 (08:21→20:29)
[2020-12-01] MEDS: APIXABAN 2.5 MG TABLET PO SCH ×2 (08:22→20:30)
[2020-12-01] MEDS: BRIMONIDINE TARTRATE 0.1% 5 ML OPHTHALMIC SOLUTION OU SCH ×2 (08:22→20:30)
[2020-12-01] MEDS: PIOGLITAZONE HCL 15 MG TABLET PO SCH (08:22)
[2020-12-01] MEDS: CHOLECALCIFEROL (VIT D3) 1,000 UNITS [25 MCG] TABLET PO SCH (08:23)
[2020-12-01] MEDS: MULTIVITAMINS WITH MINERALS, THERAPEUTIC TABLET PO SCH (08:23)
[2020-12-01] MEDS: GABAPENTIN 300 MG CAPSULE PO SCH ×2 (08:23→20:29)
[2020-12-01] MEDS: DOCUSATE SODIUM 250 MG CAPSULE PO SCH ×2 (08:24→20:29)
[2020-12-01] MEDS: LISINOPRIL 10 MG TABLET PO SCH (08:29)
[2020-12-01] MEDS: METOPROLOL TARTRATE 25 MG TABLET PO SCH ×2 (08:29→20:29)
[2020-12-01] MEDS: KETOCONAZOLE 2% 15 GM CREAM TP SCH (08:30)
[2020-12-01] MEDS: DICLOFENAC SODIUM 1% 100 GM GEL [4GM] TP SCH ×3 (09:58→20:30)
[2020-12-01] MEDS: ACETAMINOPHEN 325 MG TABLET PO PRN (12:15)
[2020-12-01 16:57] VITALS: BP 114/58
[2020-12-01 17:26] LABS: GLUCOMETER DEV NAME(LOC) 2WR.1C; GLUCOSE,POINT OF CARE 122 MG/DL (70-110)
[2020-12-01 20:25] VITALS: BP 146/67
[2020-12-01] MEDS: ATORVASTATIN CALCIUM 40 MG TABLET PO SCH (20:29)
[2020-12-01] MEDS: TAMSULOSIN HCL 0.4 MG CAPSULE PO SCH (20:30)
[2020-12-01] MEDS: SENNA 187 MG TABLET PO SCH (20:30)
[2020-12-01] MEDS ORDERED: APIX2.5T PO (21:09)
[2020-12-01] MEDS ORDERED: DOCU-350 PO (21:10)
[2020-12-01] MEDS ORDERED: TAMS-13 PO (21:11)
[2020-12-01] MEDS ORDERED: PIOG15TA6 PO (21:12)
[2020-12-01] MEDS ORDERED: METF-960 PO (21:12)
[2020-12-01] MEDS ORDERED: LISI-893 PO (21:14)
[2020-12-01] MEDS ORDERED: METO25 PO (21:14)
[2020-12-01] MEDS ORDERED: ATOR40TA28 PO (21:15)
[2020-12-01] MEDS ORDERED: CHOL-35 PO (21:16)
[2020-12-01] MEDS ORDERED: DICL100G31 TP (21:18)
[2020-12-01] MEDS ORDERED: BRIM155OS OU (21:19)
[2020-12-01] MEDS ORDERED: GABA-1181 PO (21:21)
[2020-12-02 04:24] VITALS: BP 111/52
[2020-12-02 05:46] LABS: GLUCOMETER DEV NAME(LOC) 2WR.2B; GLUCOSE,POINT OF CARE 103 MG/DL (70-110)
[2020-12-02] MEDS: 0.9% SODIUM CHLORIDE 10 ML SYRINGE IVP SCH ×3 (08:05→23:27)
[2020-12-02] MEDS: DOCUSATE SODIUM 250 MG CAPSULE PO SCH ×2 (08:06→20:03)
[2020-12-02] MEDS: MULTIVITAMINS WITH MINERALS, THERAPEUTIC TABLET PO SCH (08:06)
[2020-12-02] MEDS: DICLOFENAC SODIUM 1% 100 GM GEL [4GM] TP SCH (08:06)
[2020-12-02] MEDS: GABAPENTIN 300 MG CAPSULE PO SCH ×2 (08:07→20:03)
[2020-12-02] MEDS: CHOLECALCIFEROL (VIT D3) 1,000 UNITS [25 MCG] TABLET PO SCH (08:07)
[2020-12-02] MEDS: APIXABAN 2.5 MG TABLET PO SCH ×2 (08:07→20:03)
[2020-12-02] MEDS: LISINOPRIL 10 MG TABLET PO SCH (08:07)
[2020-12-02] MEDS: MetFORMIN HCL 500 MG TABLET PO SCH ×2 (08:08→17:26)
[2020-12-02] MEDS: PIOGLITAZONE HCL 15 MG TABLET PO SCH (08:08)
[2020-12-02] MEDS: METOPROLOL TARTRATE 25 MG TABLET PO SCH ×2 (08:08→20:04)
[2020-12-02] MEDS: BRIMONIDINE TARTRATE 0.1% 5 ML OPHTHALMIC SOLUTION OU SCH ×2 (08:09→20:04)
[2020-12-02] MEDS: KETOCONAZOLE 2% 15 GM CREAM TP SCH (08:09)
[2020-12-02] MEDS: ETHYL ALCOHOL 62% ANTISEPTIC NASAL INHALANT 0.6 ML AMPUL NASAL SCH ×2 (08:11→20:03)
[2020-12-02 09:58] VITALS: BP 127/58
[2020-12-02 16:10] VITALS: BP 96/49
[2020-12-02 17:33] LABS: GLUCOMETER DEV NAME(LOC) 2WR.2B; GLUCOSE,POINT OF CARE 119 MG/DL (70-110)
[2020-12-02 20:00] VITALS: BP 102/58
[2020-12-02] MEDS: ATORVASTATIN CALCIUM 40 MG TABLET PO SCH (20:03)
[2020-12-02] MEDS: SENNA 187 MG TABLET PO SCH (20:03)
[2020-12-02] MEDS: TAMSULOSIN HCL 0.4 MG CAPSULE PO SCH (20:03)
[2020-12-03 04:30] VITALS: BP 134/59
[2020-12-03 06:24] LABS: GLUCOMETER DEV NAME(LOC) 2WR.1C; GLUCOSE,POINT OF CARE 105 MG/DL (70-110)
[2020-12-03] MEDS: APIXABAN 2.5 MG TABLET PO SCH ×2 (07:59→20:57)
[2020-12-03] MEDS: DOCUSATE SODIUM 250 MG CAPSULE PO SCH ×2 (07:59→20:57)
[2020-12-03] MEDS: MULTIVITAMINS WITH MINERALS, THERAPEUTIC TABLET PO SCH (07:59)
[2020-12-03] MEDS: MetFORMIN HCL 500 MG TABLET PO SCH ×2 (07:59→18:24)
[2020-12-03] MEDS: ETHYL ALCOHOL 62% ANTISEPTIC NASAL INHALANT 0.6 ML AMPUL NASAL SCH ×2 (07:59→20:57)
[2020-12-03] MEDS: PIOGLITAZONE HCL 15 MG TABLET PO SCH (08:00)
[2020-12-03] MEDS: CHOLECALCIFEROL (VIT D3) 1,000 UNITS [25 MCG] TABLET PO SCH (08:00)
[2020-12-03] MEDS: GABAPENTIN 300 MG CAPSULE PO SCH ×2 (08:00→20:57)
[2020-12-03] MEDS: KETOCONAZOLE 2% 15 GM CREAM TP SCH (08:01)
[2020-12-03] MEDS: 0.9% SODIUM CHLORIDE 10 ML SYRINGE IVP SCH ×3 (08:01→23:38)
[2020-12-03] MEDS: BRIMONIDINE TARTRATE 0.1% 5 ML OPHTHALMIC SOLUTION OU SCH ×2 (08:01→20:58)
[2020-12-03] MEDS: METOPROLOL TARTRATE 25 MG TABLET PO SCH ×2 (08:02→20:57)
[2020-12-03] MEDS: LISINOPRIL 10 MG TABLET PO SCH (08:02)
[2020-12-03 09:06] VITALS: BP 133/74
[2020-12-03 16:58] VITALS: BP 111/53
[2020-12-03 18:08] LABS: GLUCOMETER DEV NAME(LOC) 2WR.1C; GLUCOSE,POINT OF CARE 128 MG/DL (70-110)
[2020-12-03 20:55] VITALS: BP 126/66
[2020-12-03] MEDS: TAMSULOSIN HCL 0.4 MG CAPSULE PO SCH (20:57)
[2020-12-03] MEDS: ATORVASTATIN CALCIUM 40 MG TABLET PO SCH (20:57)
[2020-12-03] MEDS: SENNA 187 MG TABLET PO SCH (20:57)
[2020-12-04 00:48] VITALS: BP 99/65
[2020-12-04] MEDS: ACETAMINOPHEN 325 MG TABLET PO PRN ×2 (00:48→13:35)
[2020-12-04 05:38] LABS: GLUCOMETER DEV NAME(LOC) 2WR.1C; GLUCOSE,POINT OF CARE 99 MG/DL (70-110)
[2020-12-04] MEDS: DOCUSATE SODIUM 250 MG CAPSULE PO SCH ×2 (07:43→21:15)
[2020-12-04] MEDS: CHOLECALCIFEROL (VIT D3) 1,000 UNITS [25 MCG] TABLET PO SCH (07:44)
[2020-12-04] MEDS: PIOGLITAZONE HCL 15 MG TABLET PO SCH (07:44)
[2020-12-04] MEDS: GABAPENTIN 300 MG CAPSULE PO SCH ×2 (07:44→21:15)
[2020-12-04] MEDS: ETHYL ALCOHOL 62% ANTISEPTIC NASAL INHALANT 0.6 ML AMPUL NASAL SCH ×2 (07:45→21:15)
[2020-12-04] MEDS: MULTIVITAMINS WITH MINERALS, THERAPEUTIC TABLET PO SCH (07:45)
[2020-12-04] MEDS: LISINOPRIL 10 MG TABLET PO SCH (07:45)
[2020-12-04] MEDS: MetFORMIN HCL 500 MG TABLET PO SCH ×2 (07:45→18:18)
[2020-12-04] MEDS: APIXABAN 2.5 MG TABLET PO SCH ×2 (07:45→21:15)
[2020-12-04] MEDS: KETOCONAZOLE 2% 15 GM CREAM TP SCH (07:47)
[2020-12-04] MEDS: BRIMONIDINE TARTRATE 0.1% 5 ML OPHTHALMIC SOLUTION OU SCH ×2 (07:47→21:16)
[2020-12-04] MEDS: METOPROLOL TARTRATE 25 MG TABLET PO SCH ×2 (07:50→21:00)
[2020-12-04] MEDS: 0.9% SODIUM CHLORIDE 10 ML SYRINGE IVP SCH ×3 (07:51→23:39)
[2020-12-04 08:01] VITALS: BP 121/73
[2020-12-04 16:01] VITALS: BP 109/63
[2020-12-04 19:31] LABS: GLUCOMETER DEV NAME(LOC) 2WR.1C; GLUCOSE,POINT OF CARE 94 MG/DL (70-110)
[2020-12-04] MEDS: TAMSULOSIN HCL 0.4 MG CAPSULE PO SCH (21:15)
[2020-12-04] MEDS: ATORVASTATIN CALCIUM 40 MG TABLET PO SCH (21:15)
[2020-12-04] MEDS: SENNA 187 MG TABLET PO SCH (21:18)
[2020-12-04 21:19] VITALS: BP 94/51
[2020-12-05] VITALS: BP 98/51
[2020-12-05 05:40] LABS: GLUCOMETER DEV NAME(LOC) 2WR.1C; GLUCOSE,POINT OF CARE 81 MG/DL (70-110)
[2020-12-05] MEDS: MetFORMIN HCL 500 MG TABLET PO SCH ×2 (08:00→18:57)
[2020-12-05] MEDS: ETHYL ALCOHOL 62% ANTISEPTIC NASAL INHALANT 0.6 ML AMPUL NASAL SCH ×2 (08:01→20:07)
[2020-12-05] MEDS: BRIMONIDINE TARTRATE 0.1% 5 ML OPHTHALMIC SOLUTION OU SCH ×2 (08:02→20:08)
[2020-12-05] MEDS: PIOGLITAZONE HCL 15 MG TABLET PO SCH (08:02)
[2020-12-05] MEDS: APIXABAN 2.5 MG TABLET PO SCH ×2 (08:03→20:07)
[2020-12-05] MEDS: DOCUSATE SODIUM 250 MG CAPSULE PO SCH ×2 (08:03→20:07)
[2020-12-05] MEDS: GABAPENTIN 300 MG CAPSULE PO SCH ×2 (08:05→20:09)
[2020-12-05] MEDS: MULTIVITAMINS WITH MINERALS, THERAPEUTIC TABLET PO SCH (08:06)
[2020-12-05] MEDS: CHOLECALCIFEROL (VIT D3) 1,000 UNITS [25 MCG] TABLET PO SCH (08:06)
[2020-12-05] MEDS: LISINOPRIL 10 MG TABLET PO SCH (08:07)
[2020-12-05] MEDS: METOPROLOL TARTRATE 25 MG TABLET PO SCH (08:11)
[2020-12-05] MEDS: KETOCONAZOLE 2% 15 GM CREAM TP SCH (08:12)
[2020-12-05 08:30] VITALS: BP 114/53
[2020-12-05] MEDS: 0.9% SODIUM CHLORIDE 10 ML SYRINGE IVP SCH ×3 (08:34→23:11)
[2020-12-05 16:00] VITALS: BP 107/66
[2020-12-05 17:47] LABS: GLUCOMETER DEV NAME(LOC) 2WR.1C; GLUCOSE,POINT OF CARE 139 MG/DL (70-110)
[2020-12-05] MEDS: SENNA 187 MG TABLET PO SCH (20:07)
[2020-12-05] MEDS: ATORVASTATIN CALCIUM 40 MG TABLET PO SCH (20:07)
[2020-12-05] MEDS: TAMSULOSIN HCL 0.4 MG CAPSULE PO SCH (20:07)
[2020-12-05 20:17] VITALS: BP 119/69
[2020-12-06] VITALS: BP 110/57
[2020-12-06 05:47] LABS: GLUCOMETER DEV NAME(LOC) 2WR.2B; GLUCOSE,POINT OF CARE 90 MG/DL (70-110)
[2020-12-06] MEDS: ETHYL ALCOHOL 62% ANTISEPTIC NASAL INHALANT 0.6 ML AMPUL NASAL SCH ×2 (08:09→20:06)
[2020-12-06] MEDS: MetFORMIN HCL 500 MG TABLET PO SCH ×2 (08:10→17:48)
[2020-12-06] MEDS: DOCUSATE SODIUM 250 MG CAPSULE PO SCH ×2 (08:10→20:04)
[2020-12-06] MEDS: MULTIVITAMINS WITH MINERALS, THERAPEUTIC TABLET PO SCH (08:10)
[2020-12-06] MEDS: LISINOPRIL 10 MG TABLET PO SCH (08:10)
[2020-12-06] MEDS: BRIMONIDINE TARTRATE 0.1% 5 ML OPHTHALMIC SOLUTION OU SCH ×2 (08:10→20:07)
[2020-12-06] MEDS: CHOLECALCIFEROL (VIT D3) 1,000 UNITS [25 MCG] TABLET PO SCH (08:10)
[2020-12-06] MEDS: APIXABAN 2.5 MG TABLET PO SCH ×2 (08:10→20:06)
[2020-12-06] MEDS: KETOCONAZOLE 2% 15 GM CREAM TP SCH (08:10)
[2020-12-06] MEDS: GABAPENTIN 300 MG CAPSULE PO SCH ×2 (08:10→20:04)
[2020-12-06] MEDS: PIOGLITAZONE HCL 15 MG TABLET PO SCH (08:10)
[2020-12-06] MEDS: 0.9% SODIUM CHLORIDE 10 ML SYRINGE IVP SCH ×2 (08:13→16:42)
[2020-12-06 08:37] VITALS: BP 126/59
[2020-12-06] MEDS: ACETAMINOPHEN 325 MG TABLET PO PRN (12:01)
[2020-12-06 16:00] VITALS: BP 116/51
[2020-12-06 18:05] LABS: GLUCOMETER DEV NAME(LOC) 2WR.2B; GLUCOSE,POINT OF CARE 130 MG/DL (70-110)
[2020-12-06] MEDS: ATORVASTATIN CALCIUM 40 MG TABLET PO SCH (20:04)
[2020-12-06] MEDS: SENNA 187 MG TABLET PO SCH (20:04)
[2020-12-06] MEDS: TAMSULOSIN HCL 0.4 MG CAPSULE PO SCH (20:04)
[2020-12-07] VITALS: BP 123/66
[2020-12-07 05:57] LABS: GLUCOMETER DEV NAME(LOC) 2WR.2B; GLUCOSE,POINT OF CARE 92 MG/DL (70-110)
[2020-12-07] MEDS: GABAPENTIN 300 MG CAPSULE PO SCH ×2 (07:43→20:11)
[2020-12-07] MEDS: PIOGLITAZONE HCL 15 MG TABLET PO SCH (07:43)
[2020-12-07] MEDS: MetFORMIN HCL 500 MG TABLET PO SCH ×2 (07:43→17:46)
[2020-12-07] MEDS: ETHYL ALCOHOL 62% ANTISEPTIC NASAL INHALANT 0.6 ML AMPUL NASAL SCH ×2 (07:43→20:11)
[2020-12-07] MEDS: DOCUSATE SODIUM 250 MG CAPSULE PO SCH ×2 (07:43→20:11)
[2020-12-07] MEDS: LISINOPRIL 10 MG TABLET PO SCH (07:43)
[2020-12-07] MEDS: CHOLECALCIFEROL (VIT D3) 1,000 UNITS [25 MCG] TABLET PO SCH (07:43)
[2020-12-07] MEDS: MULTIVITAMINS WITH MINERALS, THERAPEUTIC TABLET PO SCH (07:44)
[2020-12-07] MEDS: APIXABAN 2.5 MG TABLET PO SCH ×2 (07:44→20:11)
[2020-12-07] MEDS: KETOCONAZOLE 2% 15 GM CREAM TP SCH (07:45)
[2020-12-07] MEDS: BRIMONIDINE TARTRATE 0.1% 5 ML OPHTHALMIC SOLUTION OU SCH ×2 (07:46→20:12)
[2020-12-07 08:10] VITALS: BP 125/69
[2020-12-07] MEDS: ACETAMINOPHEN 325 MG TABLET PO PRN (08:10)
[2020-12-07 16:24] VITALS: BP 119/59
[2020-12-07 19:01] LABS: GLUCOMETER DEV NAME(LOC) 2WR.2B; GLUCOSE,POINT OF CARE 104 MG/DL (70-110)
[2020-12-07] MEDS: ATORVASTATIN CALCIUM 40 MG TABLET PO SCH (20:11)
[2020-12-07] MEDS: TAMSULOSIN HCL 0.4 MG CAPSULE PO SCH (20:11)
[2020-12-07] MEDS: SENNA 187 MG TABLET PO SCH (20:12)
[2020-12-08] VITALS: BP 100/51
[2020-12-08 08:30] VITALS: BP 106/63
[2020-12-08] MEDS: ETHYL ALCOHOL 62% ANTISEPTIC NASAL INHALANT 0.6 ML AMPUL NASAL SCH ×2 (08:37→20:12)
[2020-12-08] MEDS: GABAPENTIN 300 MG CAPSULE PO SCH ×2 (08:38→20:12)
[2020-12-08] MEDS: DOCUSATE SODIUM 250 MG CAPSULE PO SCH ×2 (08:38→20:12)
[2020-12-08] MEDS: CHOLECALCIFEROL (VIT D3) 1,000 UNITS [25 MCG] TABLET PO SCH (08:38)
[2020-12-08] MEDS: MULTIVITAMINS WITH MINERALS, THERAPEUTIC TABLET PO SCH (08:38)
[2020-12-08] MEDS: MetFORMIN HCL 500 MG TABLET PO SCH ×2 (08:38→17:29)
[2020-12-08] MEDS: BRIMONIDINE TARTRATE 0.1% 5 ML OPHTHALMIC SOLUTION OU SCH ×2 (08:39→20:14)
[2020-12-08] MEDS: KETOCONAZOLE 2% 15 GM CREAM TP SCH (08:40)
[2020-12-08] MEDS: PIOGLITAZONE HCL 15 MG TABLET PO SCH (08:40)
[2020-12-08] MEDS: LISINOPRIL 10 MG TABLET PO SCH (08:40)
[2020-12-08] MEDS: APIXABAN 2.5 MG TABLET PO SCH ×2 (08:41→20:12)
[2020-12-08 15:15] LABS: GLUCOMETER DEV NAME(LOC) 2WR.1C; GLUCOSE,POINT OF CARE 89 MG/DL (70-110)
[2020-12-08 16:11] VITALS: BP 127/76
[2020-12-08 17:57] LABS: GLUCOMETER DEV NAME(LOC) 2WR.1C; GLUCOSE,POINT OF CARE 96 MG/DL (70-110)
[2020-12-08] MEDS: ATORVASTATIN CALCIUM 40 MG TABLET PO SCH (20:12)
[2020-12-08] MEDS: SENNA 187 MG TABLET PO SCH (20:12)
[2020-12-08] MEDS: TAMSULOSIN HCL 0.4 MG CAPSULE PO SCH (20:12)
[2020-12-09] VITALS: BP 141/69
[2020-12-09 05:48] LABS: GLUCOMETER DEV NAME(LOC) 2WR.2B; GLUCOSE,POINT OF CARE 96 MG/DL (70-110)
[2020-12-09] MEDS: ETHYL ALCOHOL 62% ANTISEPTIC NASAL INHALANT 0.6 ML AMPUL NASAL SCH ×2 (07:45→20:04)
[2020-12-09] MEDS: APIXABAN 2.5 MG TABLET PO SCH ×2 (07:46→20:04)
[2020-12-09] MEDS: MULTIVITAMINS WITH MINERALS, THERAPEUTIC TABLET PO SCH (07:46)
[2020-12-09] MEDS: KETOCONAZOLE 2% 15 GM CREAM TP SCH (07:46)
[2020-12-09] MEDS: DOCUSATE SODIUM 250 MG CAPSULE PO SCH ×2 (07:46→20:05)
[2020-12-09] MEDS: GABAPENTIN 300 MG CAPSULE PO SCH ×2 (07:46→20:05)
[2020-12-09] MEDS: LISINOPRIL 10 MG TABLET PO SCH (07:46)
[2020-12-09] MEDS: PIOGLITAZONE HCL 15 MG TABLET PO SCH (07:46)
[2020-12-09] MEDS: CHOLECALCIFEROL (VIT D3) 1,000 UNITS [25 MCG] TABLET PO SCH (07:46)
[2020-12-09] MEDS: BRIMONIDINE TARTRATE 0.1% 5 ML OPHTHALMIC SOLUTION OU SCH ×2 (07:46→20:05)
[2020-12-09] MEDS: MetFORMIN HCL 500 MG TABLET PO SCH ×2 (07:46→17:46)
[2020-12-09 08:00] VITALS: BP 116/59
[2020-12-09 16:12] VITALS: BP 110/79
[2020-12-09 17:47] LABS: GLUCOMETER DEV NAME(LOC) 2WR.2B; GLUCOSE,POINT OF CARE 114 MG/DL (70-110)
[2020-12-09] MEDS ORDERED: MULT-1133 PO (18:17)
[2020-12-09] MEDS: TAMSULOSIN HCL 0.4 MG CAPSULE PO SCH (20:04)
[2020-12-09] MEDS: ATORVASTATIN CALCIUM 40 MG TABLET PO SCH (20:05)
[2020-12-09] MEDS: SENNA 187 MG TABLET PO SCH (20:06)
[2020-12-10 00:57] VITALS: BP 113/58
[2020-12-10 06:09] LABS: GLUCOMETER DEV NAME(LOC) 2WR.2B; GLUCOSE,POINT OF CARE 96 MG/DL (70-110)
[2020-12-10] MEDS: BRIMONIDINE TARTRATE 0.1% 5 ML OPHTHALMIC SOLUTION OU SCH ×2 (08:04→20:02)
[2020-12-10] MEDS: KETOCONAZOLE 2% 15 GM CREAM TP SCH (08:05)
[2020-12-10] MEDS: MULTIVITAMINS WITH MINERALS, THERAPEUTIC TABLET PO SCH (08:08)
[2020-12-10] MEDS: ETHYL ALCOHOL 62% ANTISEPTIC NASAL INHALANT 0.6 ML AMPUL NASAL SCH ×2 (08:08→20:01)
[2020-12-10] MEDS: MetFORMIN HCL 500 MG TABLET PO SCH ×2 (08:08→17:38)
[2020-12-10] MEDS: APIXABAN 2.5 MG TABLET PO SCH ×2 (08:09→20:00)
[2020-12-10] MEDS: LISINOPRIL 10 MG TABLET PO SCH (08:09)
[2020-12-10] MEDS: PIOGLITAZONE HCL 15 MG TABLET PO SCH (08:09)
[2020-12-10] MEDS: GABAPENTIN 300 MG CAPSULE PO SCH ×2 (08:09→20:00)
[2020-12-10] MEDS: CHOLECALCIFEROL (VIT D3) 1,000 UNITS [25 MCG] TABLET PO SCH (08:09)
[2020-12-10] MEDS: DOCUSATE SODIUM 250 MG CAPSULE PO SCH ×2 (08:15→20:00)
[2020-12-10 09:10] VITALS: BP 114/52
[2020-12-10] MEDS: ACETAMINOPHEN 325 MG TABLET PO PRN (11:13)
[2020-12-10 16:00] VITALS: BP 105/51
[2020-12-10 17:39] LABS: GLUCOMETER DEV NAME(LOC) 2WR.2B; GLUCOSE,POINT OF CARE 104 MG/DL (70-110)
[2020-12-10] MEDS: ATORVASTATIN CALCIUM 40 MG TABLET PO SCH (20:00)
[2020-12-10] MEDS: TAMSULOSIN HCL 0.4 MG CAPSULE PO SCH (20:00)
[2020-12-10] MEDS: SENNA 187 MG TABLET PO SCH (20:00)
[2020-12-10 23:00] VITALS: BP 83/45
[2020-12-11 00:30] VITALS: BP 103/48
[2020-12-11 03:47] VITALS: BP 113/61
[2020-12-11] MEDS: ACETAMINOPHEN 325 MG TABLET PO PRN ×2 (03:47→10:42)
[2020-12-11 08:30] VITALS: BP 98/71
[2020-12-11] MEDS: ETHYL ALCOHOL 62% ANTISEPTIC NASAL INHALANT 0.6 ML AMPUL NASAL SCH (08:56)
[2020-12-11] MEDS: MetFORMIN HCL 500 MG TABLET PO SCH (08:56)
[2020-12-11] MEDS: MULTIVITAMINS WITH MINERALS, THERAPEUTIC TABLET PO SCH (08:57)
[2020-12-11] MEDS: CHOLECALCIFEROL (VIT D3) 1,000 UNITS [25 MCG] TABLET PO SCH (08:57)
[2020-12-11] MEDS: GABAPENTIN 300 MG CAPSULE PO SCH (08:57)
[2020-12-11] MEDS: DOCUSATE SODIUM 250 MG CAPSULE PO SCH (08:57)
[2020-12-11] MEDS: APIXABAN 2.5 MG TABLET PO SCH (08:57)
[2020-12-11] MEDS: PIOGLITAZONE HCL 15 MG TABLET PO SCH (08:57)
[2020-12-11] MEDS: KETOCONAZOLE 2% 15 GM CREAM TP SCH (08:57)
[2020-12-11] MEDS: LISINOPRIL 10 MG TABLET PO SCH (08:58)
[2020-12-11] MEDS: BRIMONIDINE TARTRATE 0.1% 5 ML OPHTHALMIC SOLUTION OU SCH (08:58)
[2020-12-11 11:35] LABS: GLUCOMETER DEV NAME(LOC) 2WR.1C; GLUCOSE,POINT OF CARE 94 MG/DL (70-110)
== END 2020-12-11 12:25 | disposition home or self-care (01) | DRG 56 ==
LOC: 2WR 18:49
PROVIDERS: ADMIT Physical Medicine & Rehabilitation; ATTEND Physical Medicine & Rehabilitation
DX: I69.354 Hemiplegia and hemiparesis following cerebral infarction affecting left non-dominant side (principal); I63.411 Cerebral infarction due to embolism of right middle cerebral artery; A41.51 Sepsis due to Escherichia coli [E. coli]; E46 Unspecified protein-calorie malnutrition; N12 Tubulo-interstitial nephritis, not specified as acute or chronic; N18.9 Chronic kidney disease, unspecified; E78.5 Hyperlipidemia, unspecified; D64.9 Anemia, unspecified; I10 Essential (primary) hypertension; E11.22 Type 2 diabetes mellitus with diabetic chronic kidney disease; I48.91 Unspecified atrial fibrillation
CPT/HCPCS: 80048; 80053; 81001; 82962; 85025; 87081; 92507; 92508; 92523; 97110; 97112; 97116; 97163; 97167; 97530; 97535; 99366; 99368; J1335; J7040; J7050